=== PATIENT | male | born 1975 | race Two or more races ===

== ENCOUNTER 2018-07-22 19:46 | Inpatient (IN) | payer OTHER ==
[~2018-07-22] VITALS: Ht 165.1 cm; Wt 85.0 kg
[2018-07-22] MEDS ORDERED: LIDOCAINE-MPF 1%, 5ML ONE (20:15)
[2018-07-22] MEDS ORDERED: SODIUM CHLORIDE 0.9% 1,000 ML IV ONE (20:22)
[2018-07-22] MEDS ORDERED: METRONIDAZOLE PMX 500MG/100ML 100 ML IVPB ONE (20:30)
[2018-07-22] MEDS ORDERED: VANCOMYCIN PER PHARMACY MC PRN (20:30)
[2018-07-22] MEDS ORDERED: LIDOCAINE-MPF 1%, 5ML INFIL ONE (20:30)
[2018-07-22] MEDS ORDERED: SODIUM CHLORIDE FLUSH 10ML SYR IVF ONE (20:30)
[2018-07-22] MEDS ORDERED: SODIUM CHLORIDE 0.9% 1,000ML IVBOLUS ONE (20:30)
[2018-07-22] MEDS ORDERED: PLEASE ENTER HEIGHT AND WEIGHT MC SCH (20:30)
[2018-07-22] MEDS ORDERED: PLEASE ENTER ALLERGIES MC SCH (20:30)
[2018-07-22] MEDS ORDERED: MORPHINE SULFATE 4 MG/ML, 1ML IVPush PRN (20:30)
[2018-07-22 21:00] LABS: BASOPHILS # (AUTO) 0.06 x10^3/uL (0-0.1); BASOPHILS % (AUTO) 1 % (0-1); EOSINOPHILS # (AUTO) 0.02 x10^3/uL (0-0.4); EOSINOPHILS % (AUTO) 0 % (1-7); LYMPHOCYTES # (AUTO) 1.63 x10^3/uL (1-3.4); LYMPHOCYTES % (AUTO) 13 % (22-44); MD NO; MEAN CORPUSCULAR HEMOGLOBIN 31.4 pg (27.5-34.5); MEAN CORPUSCULAR VOLUME 89.7 fL (81-97); MEAN PLATELET VOLUME 7.9 fL (7.4-10.4); MONOCYTES # (AUTO) 0.55 x10^3/uL (0.2-0.8); MONOCYTES % (AUTO) 5 % (2-9); NEUTROPHILS # (AUTO) 10.07 x10^3/uL (1.8-6.8); NEUTROPHILS % (AUTO) 82 % (42-75); PLATELET COUNT 230 x10^3/uL (130-400); RED BLOOD COUNT 4.32 x10^6/uL (4.38-5.82); RED CELL DISTRIBUTION WIDTH 12.1 % (9.4-14.8)
[2018-07-22] MEDS ORDERED: PHARMACOKINETIC CONSULTATION MC ONE (21:00)
[2018-07-22] MEDS ORDERED: PHARMACOKINETIC MONITORING MC PRN (21:00)
[2018-07-22] MEDS ORDERED: VANCOMYCIN 1,500 MG in SODIUM CHLORIDE 0.9% 250 ML IV ONE (21:00)
[2018-07-22 21:11] LABS: ALBUMIN 3.5 g/dL (3.4-5.0); ANION GAP 10 mmol/L (5-15); CALCIUM 9.2 mg/dL (8.5-10.1); CHLORIDE 95 mmol/L (98-107); CREATININE 0.83 mg/dL (0.7-1.3)
[2018-07-22 21:14] LABS: MICROSCOPIC NOT IND
[2018-07-22] MEDS ORDERED: METRONIDAZOLE PMX 500MG/100ML 100 ML ONE (21:17)
[2018-07-22 21:20] LABS: CULTURE INDICATED? NO
[2018-07-22] MEDS ORDERED: OMNIPAQUE 350 MG/ML, 100ML BOTTLE ONE (21:40)
[2018-07-22] MEDS ORDERED: SODIUM CHLORIDE 0.9% 1,000 ML IV SCH (23:08)
[2018-07-22] MEDS ORDERED: ACETAMINOPHEN 500 MG TABLET PO PRN (23:30)
[2018-07-22] MEDS ORDERED: ONDANSETRON 2MG/ML, 2ML IVPush PRN (23:30)
[2018-07-22] MEDS ORDERED: POLYETHYLENE GLYCOL 17 GM PACKET PO PRN (23:30)
[2018-07-22 23:34] VITALS: BP 137/83
[2018-07-23] MEDS: INSULIN LISPRO 100 UNITS/ML, PEN SQ-INSULIN SCH ×5 (00:24→22:51)
[2018-07-23] MEDS: AMPICILLIN/SULBACTAM 1,500 MG in SODIUM CHLORIDE 0.9% 50 ML IV SCH ×4 (00:39→17:46)
[2018-07-23 02:00] VITALS: BP 130/80
[2018-07-23 05:04] LABS: BASOPHILS # (AUTO) 0.01 x10^3/uL (0-0.1); BASOPHILS % (AUTO) 0 % (0-1); EOSINOPHILS # (AUTO) 0.09 x10^3/uL (0-0.4); EOSINOPHILS % (AUTO) 1 % (1-7); LYMPHOCYTES % (AUTO) 16 % (22-44); MD NO; MEAN CORPUSCULAR HEMOGLOBIN 31.6 pg (27.5-34.5); MEAN CORPUSCULAR HGB CONC 35.3 g/dL (33.2-36.2); MEAN CORPUSCULAR VOLUME 89.7 fL (81-97); MEAN PLATELET VOLUME 8.2 fL (7.4-10.4); MONOCYTES # (AUTO) 0.55 x10^3/uL (0.2-0.8); MONOCYTES % (AUTO) 6 % (2-9); NEUTROPHILS % (AUTO) 77 % (42-75); PLATELET COUNT 212 x10^3/uL (130-400); RED BLOOD COUNT 3.89 x10^6/uL (4.38-5.82); RED CELL DISTRIBUTION WIDTH 11.9 % (9.4-14.8)
[2018-07-23 05:07] LABS: ANION GAP 9 mmol/L (5-15); CHLORIDE 103 mmol/L (98-107); CREATININE 0.61 mg/dL (0.7-1.3)
[2018-07-23 06:42] VITALS: BP 125/76
[2018-07-23] MEDS: SODIUM CHLORIDE 0.9% 1,000 ML IV SCH (12:38)
[2018-07-23 12:52] VITALS: BP 126/73
[2018-07-23 20:23] VITALS: BP 133/79
[2018-07-23] MEDS ORDERED: FENTANYL PF 100 MCG/2ML ONE ×2 (20:34→21:27)
[2018-07-23] MEDS ORDERED: MIDAZOLAM 1 MG/ML, 2ML ONE (20:34)
[2018-07-23] MEDS ORDERED: LIDOCAINE JELLY 2%, 30GM ONE (20:35)
[2018-07-23] MEDS ORDERED: DEXAMETHASONE 4 MG/ML, 1ML ONE (20:59)
[2018-07-23] MEDS ORDERED: ONDANSETRON 2MG/ML, 2ML ONE (20:59)
[2018-07-23] MEDS ORDERED: KETOROLAC 30 MG/1 ML ONE (20:59)
[2018-07-23] MEDS ORDERED: PROPOFOL 10 MG/ML, 20ML ONE (20:59)
[2018-07-23] MEDS ORDERED: LABETALOL 5MG/ML, 20ML IV PRN (21:00)
[2018-07-23] MEDS ORDERED: SCOPOLAMINE PATCH, 1.5MG PATCH.TD72 TD PRN (21:00)
[2018-07-23] MEDS ORDERED: ALBUTEROL/IPRATROPIUM 2.5MG/0.5MG, 3 ML NPPB PRN (21:00)
[2018-07-23] MEDS ORDERED: OXYcodone 5 MG/5 ML ORAL.SOL UDC PO PRN (21:00)
[2018-07-23] MEDS ORDERED: PROMETHAZINE 25 MG SUPP PR PRN (21:00)
[2018-07-23] MEDS ORDERED: ACETAMINOPHEN 325 MG TABLET PO PRN (21:00)
[2018-07-23] MEDS ORDERED: ONDANSETRON 2MG/ML, 2ML IV PRN (21:00)
[2018-07-23] MEDS ORDERED: MIDAZOLAM 1 MG/ML, 2ML IV PRN (21:00)
[2018-07-23] MEDS ORDERED: HYDROmorphone 1 MG/ML, 1ML IV PRN (21:00)
[2018-07-23] MEDS ORDERED: FENTANYL PF 100 MCG/2ML IV PRN (21:00)
[2018-07-23] MEDS ORDERED: MEPERIDINE/PF 25MG/0.5ML IVPush PRN (21:00)
[2018-07-23] MEDS ORDERED: OXYcodone 5 MG/5 ML ORAL.SOL UDC ONE (21:27)
[2018-07-23] MEDS: INSULIN GLARGINE 100 UNITS/ML, PEN SQ-INSULIN SCH (22:50)
[2018-07-24 00:04] VITALS: BP 122/67
[2018-07-24] MEDS: SODIUM CHLORIDE 0.9% 1,000 ML IV SCH ×2 (01:55→11:30)
[2018-07-24] MEDS: AMPICILLIN/SULBACTAM 1,500 MG in SODIUM CHLORIDE 0.9% 50 ML IV SCH ×4 (01:55→20:16)
[2018-07-24 03:40] VITALS: BP 103/55
[2018-07-24 06:39] VITALS: BP 108/72
[2018-07-24] MEDS: INSULIN LISPRO 100 UNITS/ML, PEN SQ-INSULIN SCH ×4 (07:56→21:15)
[2018-07-24] MEDS: INSULIN GLARGINE 100 UNITS/ML, PEN SQ-INSULIN SCH ×2 (09:05→21:15)
[2018-07-24 12:08] VITALS: BP 125/64
[2018-07-24] MEDS ORDERED: FENTANYL PF 100 MCG/2ML ONE (15:50)
[2018-07-24] MEDS ORDERED: MEPERIDINE/PF 25MG/0.5ML IVPush PRN (16:30)
[2018-07-24] MEDS ORDERED: DIPHENHYDRAMINE 50 MG/ML, 1ML IVPush PRN (16:30)
[2018-07-24] MEDS ORDERED: HYDROmorphone 1 MG/ML, 1ML IV PRN (16:30)
[2018-07-24] MEDS ORDERED: FENTANYL PF 100 MCG/2ML IV PRN (16:30)
[2018-07-24] MEDS ORDERED: PROCHLORPERAZINE 5 MG/ML, 2ML IV PRN (16:30)
[2018-07-24] MEDS ORDERED: hydrALAzine 20 MG/ML, 1ML IV PRN (16:30)
[2018-07-24] MEDS ORDERED: LABETALOL 5MG/ML, 20ML IV PRN (16:30)
[2018-07-24 20:10] VITALS: BP 120/78
[2018-07-25] VITALS: BP 111/66
[2018-07-25] MEDS: SODIUM CHLORIDE 0.9% 1,000 ML IV SCH ×3 (01:16→20:51)
[2018-07-25] MEDS: AMPICILLIN/SULBACTAM 1,500 MG in SODIUM CHLORIDE 0.9% 50 ML IV SCH ×4 (02:04→19:44)
[2018-07-25 04:30] VITALS: BP 122/82
[2018-07-25] MEDS: INSULIN LISPRO 100 UNITS/ML, PEN SQ-INSULIN SCH ×4 (07:00→20:50)
[2018-07-25 08:24] VITALS: BP 122/76
[2018-07-25] MEDS: INSULIN GLARGINE 100 UNITS/ML, PEN SQ-INSULIN SCH ×2 (08:44→20:51)
[2018-07-25 15:35] VITALS: BP 133/79
[2018-07-25 19:30] VITALS: BP 129/75
[2018-07-26 01:08] VITALS: BP 122/84
[2018-07-26] MEDS: AMPICILLIN/SULBACTAM 1,500 MG in SODIUM CHLORIDE 0.9% 50 ML IV SCH ×3 (01:48→14:00)
[2018-07-26] MEDS: SODIUM CHLORIDE 0.9% 1,000 ML IV SCH (06:42)
[2018-07-26 06:57] VITALS: BP 143/91
[2018-07-26] MEDS: INSULIN LISPRO 100 UNITS/ML, PEN SQ-INSULIN SCH ×2 (07:49→11:41)
[2018-07-26] MEDS: INSULIN GLARGINE 100 UNITS/ML, PEN SQ-INSULIN SCH (08:38)
[2018-07-26] MEDS ORDERED: HYDROmorphone 2 MG/ML, 1ML ONE (11:00)
[2018-07-26] MEDS ORDERED: SULFAMETH./TRIMETHOPRIM DS 800MG/160MG TABLET PO SCH (11:30)
[2018-07-26] MEDS ORDERED: AMOXICILLIN/CLAV 875-125MG TABLET PO SCH (11:30)
[2018-07-26] MEDS ORDERED: HYDROmorphone 2 MG/ML, 1ML IV ONE (12:00)
[2018-07-26] MEDS ORDERED: INSU100I13 SQ-INSULIN (12:17)
[2018-07-26] MEDS ORDERED: METF500T PO (12:17)
[2018-07-26] MEDS ORDERED: LACT1CAP24 PO (12:17)
[2018-07-26] MEDS ORDERED: AMOX1TAB12 PO (12:17)
[2018-07-26 12:40] VITALS: BP 132/79
== END 2018-07-26 16:55 | disposition home or self-care (01) | DRG 717 ==
LOC: ED 21:42 → EDIP 22:18 → 4NOR 23:21
PROVIDERS: ADMIT Hospitalist; ATTEND Hospitalist
PROC: 0V950ZZ Drainage of Scrotum, Open Approach (ICD-10-PCS; 2018-07-22)
PROC: 0V950ZZ Drainage of Scrotum, Open Approach (ICD-10-PCS; principal; 2018-07-23 14:00)
PROC: 0VB50ZZ Excision of Scrotum, Open Approach (ICD-10-PCS; 2018-07-24)
DX: N49.2 Inflammatory disorders of scrotum (principal); L02.214 Cutaneous abscess of groin; E87.1 Hypo-osmolality and hyponatremia; L03.811 Cellulitis of head [any part, except face]; L02.215 Cutaneous abscess of perineum; E11.65 Type 2 diabetes mellitus with hyperglycemia; D64.9 Anemia, unspecified; Z91.19 Patient's noncompliance with other medical treatment and regimen; Z90.49 Acquired absence of other specified parts of digestive tract
CPT/HCPCS: 74177; 80048; 81003; 82040; 82962; 83605; 83735; 84100; 85025; 87040; 87070; 87077; 87186; 87205; 93005; 96361; 96365; G0378; J1100; J1170; J1885; J2250; J2405; J2704; J3010; J3370; Q9967; J0295; J1815; J7030; J7050

== ENCOUNTER → 2018-07-29 | Outpatient (CLI) | payer OTHER ==
[~2018-07-29] MED LIST: AMOX1TAB12 PO; INSU100I13 SQ-INSULIN; LACT1CAP24 PO; METF500T PO
== END | disposition home or self-care (01) ==
LOC: WOUND 13:26
PROVIDERS: ATTEND Internal Medicine
DX: T81.31XA Disruption of external operation (surgical) wound, not elsewhere classified, initial encounter (principal); E11.65 Type 2 diabetes mellitus with hyperglycemia; Z79.4 Long term (current) use of insulin; Z90.49 Acquired absence of other specified parts of digestive tract; Y83.8 Other surgical procedures as the cause of abnormal reaction of the patient, or of later complication, without mention of misadventure at the time of the procedure; Y92.89 Other specified places as the place of occurrence of the external cause
CPT/HCPCS: 97597; 99215

== ENCOUNTER → 2018-07-31 | Outpatient (CLI) | payer OTHER | END | disposition home or self-care (01) | LOC: WOUND 07:51 | PROVIDERS: ATTEND Internal Medicine | DX: T81.31XD Disruption of external operation (surgical) wound, not elsewhere classified, subsequent encounter (principal); E11.65 Type 2 diabetes mellitus with hyperglycemia; Z79.4 Long term (current) use of insulin; Z90.49 Acquired absence of other specified parts of digestive tract; Y83.8 Other surgical procedures as the cause of abnormal reaction of the patient, or of later complication, without mention of misadventure at the time of the procedure | CPT/HCPCS: 97605 ==

== ENCOUNTER → 2018-08-02 | Outpatient (CLI) | payer OTHER | END | disposition home or self-care (01) | LOC: WOUND 14:32 | PROVIDERS: ATTEND Family Medicine | DX: T81.31XD Disruption of external operation (surgical) wound, not elsewhere classified, subsequent encounter (principal); E11.65 Type 2 diabetes mellitus with hyperglycemia; Z79.4 Long term (current) use of insulin; Z90.49 Acquired absence of other specified parts of digestive tract; Y83.8 Other surgical procedures as the cause of abnormal reaction of the patient, or of later complication, without mention of misadventure at the time of the procedure | CPT/HCPCS: 97605 ==

== ENCOUNTER → 2018-08-05 | Outpatient (CLI) | payer OTHER | END | disposition home or self-care (01) | LOC: WOUND 09:38 | PROVIDERS: ATTEND Internal Medicine | DX: T81.31XD Disruption of external operation (surgical) wound, not elsewhere classified, subsequent encounter (principal); E11.65 Type 2 diabetes mellitus with hyperglycemia; Z79.4 Long term (current) use of insulin; Z90.49 Acquired absence of other specified parts of digestive tract; Y83.8 Other surgical procedures as the cause of abnormal reaction of the patient, or of later complication, without mention of misadventure at the time of the procedure | CPT/HCPCS: 97597 ==

== ENCOUNTER → 2018-08-12 | Outpatient (CLI) | payer OTHER | END | disposition home or self-care (01) | LOC: WOUND 10:08 | PROVIDERS: ATTEND Internal Medicine | DX: T81.31XD Disruption of external operation (surgical) wound, not elsewhere classified, subsequent encounter (principal); E11.65 Type 2 diabetes mellitus with hyperglycemia; Z79.4 Long term (current) use of insulin; Z90.49 Acquired absence of other specified parts of digestive tract; Y83.8 Other surgical procedures as the cause of abnormal reaction of the patient, or of later complication, without mention of misadventure at the time of the procedure | CPT/HCPCS: 97597 ==

== ENCOUNTER 2018-08-19 09:52 | Outpatient (CLI) | payer OTHER | END 2018-08-26 12:51 | disposition home or self-care (01) | LOC: WOUND 09:52 | PROVIDERS: ATTEND Internal Medicine | DX: T81.31XD Disruption of external operation (surgical) wound, not elsewhere classified, subsequent encounter (principal); E11.65 Type 2 diabetes mellitus with hyperglycemia; Z79.4 Long term (current) use of insulin; Z90.49 Acquired absence of other specified parts of digestive tract; Y83.8 Other surgical procedures as the cause of abnormal reaction of the patient, or of later complication, without mention of misadventure at the time of the procedure | CPT/HCPCS: 97597 ==

== ENCOUNTER → 2018-09-02 | Outpatient (CLI) | payer OTHER | END | disposition home or self-care (01) | LOC: WOUND 08:23 | PROVIDERS: ATTEND Internal Medicine | DX: T81.31XD Disruption of external operation (surgical) wound, not elsewhere classified, subsequent encounter (principal); E11.65 Type 2 diabetes mellitus with hyperglycemia; Z79.4 Long term (current) use of insulin; Z90.49 Acquired absence of other specified parts of digestive tract; Y83.8 Other surgical procedures as the cause of abnormal reaction of the patient, or of later complication, without mention of misadventure at the time of the procedure | CPT/HCPCS: 17250 ==